=== PATIENT | female | born 1975 | race Caucasian/White ===

== ENCOUNTER 2021-06-26 18:08 | Emergency (ER) | payer OTHER, MEDICAID ==
[~2021-06-26] VITALS: Ht 165.1 cm; Wt 79.8 kg
[2021-06-26 18:15] VITALS: BP 125/74
--- NOTE | 2021-06-26 18:20 | NUR ---
PT W/C ASSISTED TO ER BED 6
--- NOTE | 2021-06-26 18:58 | NUR ---
DR HERNANDEZ AT BEDSIDE EVALUATING PATIENT.
[2021-06-26] MEDS ORDERED: KETOROLAC 60 MG/2 ML VIAL IM ONE (19:05)
--- NOTE | 2021-06-26 19:23 | NUR ---
Pt report given to RYAN CALLOWAY. Transfer of care at this time.
[2021-06-26] MEDS ORDERED: SULF-58 PO (19:31)
[2021-06-26] MEDS ORDERED: IBUP-2213 PO (19:31)
[2021-06-26] MEDS ORDERED: ACET-8386 PO (19:31)
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
--- NOTE | 2021-06-26 20:15 | NUR ---
PT AMBULATED TO BATHROOM
[2021-06-26 20:20] VITALS: BP 125/74
--- NOTE | 2021-06-26 20:20 | NUR ---
Patient discharged with v/s stable. Written and verbal after care instructions given and explained. Patient alert, oriented and verbalized understanding of instructions. Ambulatory with steady gait. All questions addressed prior to discharge. ID band removed. Patient advised to follow up with PMD. Rx of IBRUPROFEN, HYDROCODON, BACTRIM given. Opportunity to ask questions provided and answered.
--- NOTE | 2021-06-26 20:36 | NUR ---
The patient's care was reviewed and supervised by Fabiola Ruby RN.
== END 2021-06-26 20:20 | disposition home or self-care (01) ==
LOC: MED 18:08
DX: S70.12XA Contusion of left thigh, initial encounter (principal); H60.12 Cellulitis of left external ear; R55 Syncope and collapse; F12.90 Cannabis use, unspecified, uncomplicated; Z88.0 Allergy status to penicillin; Z98.890 Other specified postprocedural states; Z90.710 Acquired absence of both cervix and uterus; V89.2XXA Person injured in unspecified motor-vehicle accident, traffic, initial encounter; Y93.89 Activity, other specified; Y92.89 Other specified places as the place of occurrence of the external cause; Y99.8 Other external cause status
CPT/HCPCS: 93005; 96372; 99283; J1885

== ENCOUNTER 2021-07-30 12:39 | Emergency (ER) | payer MEDICAID, OTHER ==
[~2021-07-30] VITALS: Ht 165.1 cm; Wt 79.8 kg
[~2021-07-30 12:39] MED LIST: ACET-8386 PO; IBUP-2213 PO; SULF-58 PO
[2021-07-30 12:59] VITALS: BP 129/87
--- NOTE | 2021-07-30 13:04 | NUR ---
PT AMB TO BED 11.
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
[2021-07-30] MEDS ORDERED: KETOROLAC 30 MG/ML VIAL IM ONE (13:15)
--- NOTE | 2021-07-30 13:15 | NUR ---
DUSTIN PETIT AT BEDSIDE FOR FURTHER EVAL
--- NOTE | 2021-07-30 13:45 | NUR ---
PT TAKEN TO XRAY VIA WC
--- NOTE | 2021-07-30 14:41 | NUR ---
Patient discharged with v/s stable. Written and verbal after care instructions given and explained. Patient verbalized understanding. Ambulatory with steady gait. All questions addressed prior to discharge. Advised to follow up with PMD. with sling
== END 2021-07-30 14:41 | disposition home or self-care (01) ==
LOC: MED 12:39
DX: M25.512 Pain in left shoulder (principal); J45.909 Unspecified asthma, uncomplicated; Z88.0 Allergy status to penicillin; Z79.899 Other long term (current) drug therapy
CPT/HCPCS: 73030; 96372; 99283; J1885

== ENCOUNTER 2021-08-10 11:11 | Emergency (ER) | payer MEDICAID ==
[~2021-08-10] VITALS: Ht 162.6 cm; Wt 80.7 kg
[2021-08-10 11:24] VITALS: BP 145/73
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
[2021-08-10] MEDS ORDERED: NACL 0.9% 1,000 ML IV ONE (12:10)
[2021-08-10] MEDS ORDERED: ONDANSETRON 4 MG/2 ML VIAL IVP ONE (12:10)
[2021-08-10] MEDS ORDERED: MORPHINE SULFATE 4 MG/ML SYR IVP ONE (12:10)
[2021-08-10 13:01] LABS: ALBUMIN 3.2 g/dL (3.4-5.0); ANION GAP 11.5 (8-16); CARBON DIOXIDE 24.9 mmol/L (21-32); CREATININE 0.7 mg/dL (0.6-1.3); POTASSIUM 3.4 mmol/L (3.5-5.1); TOTAL BILIRUBIN 0.5 mg/dL (0.0-1.0)
[2021-08-10 13:03] LABS: BASOPHILS % (AUTO) 0.3 % (0.0-2.0); EOSINOPHILS # (AUTO) 0.1 K/uL (0-0.4); EOSINOPHILS % (AUTO) 2.2 % (0.0-4.0); HEMATOCRIT 37.7 % (36-48); HEMOGLOBIN 12.8 g/dL (12.0-16.0); LYMPHOCYTES # (AUTO) 1.2 K/uL (2.5-16.5); LYMPHOCYTES % (AUTO) 22.4 % (20.5-51.1); MEAN CORPUSCULAR HEMOGLOBIN 31 pg (27-31); MEAN CORPUSCULAR HGB CONC 34 g/dL (33-37); MEAN CORPUSCULAR VOLUME 90.1 fL (80-94); MONOCYTES # (AUTO) 0.3 K/uL (0.8-1.0); MONOCYTES % (AUTO) 5.3 % (1.7-9.3); NEUTROPHILS # (AUTO) 3.6 K/uL (1.8-7.7); NEUTROPHILS % (AUTO) 69.8 % (42.2-75.2); PLATELET COUNT (AUTO) 324 K/uL (140-450); RED BLOOD CELL COUNT(AUTO) 4.19 MIL/uL (4.20-5.40); RED CELL DISTRIBUTION WIDTH 13.2 % (11.6-13.7); WHITE BLOOD COUNT (AUTO) 5.2 K/uL (4.8-10.8)
--- NOTE | 2021-08-10 14:25 | NUR ---
PT AMBULATORY TO RESTROOM
--- NOTE | 2021-08-10 14:28 | NUR ---
PT AMBULATED BACK TO ROOM
[2021-08-10] MEDS ORDERED: KETOROLAC 15 MG/ML VIAL IVP ONE (15:10)
[2021-08-10] MEDS ORDERED: diphenhydrAMINE 50 MG/ML VIAL IVP ONE (15:10)
--- NOTE | 2021-08-10 15:42 | NUR ---
PT SWABBED FOR COVID(BLAKE) . HANDED TO LAB
[2021-08-10] MEDS ORDERED: ONDA-188 PO (15:55)
[2021-08-10] MEDS ORDERED: IBUP-2213 PO (15:55)
[2021-08-10 16:19] LABS: BARBITURATE, URINE NEGATIVE ng/ml (NEG <=200); BENZODIAZEPINE, URINE NEGATIVE ng/mL (NEG <=200); CANNABINOID, URINE POSITIVE ng/mL (NEG <=50); COCAINE, URINE NEGATIVE ng/mL (NEG <=300); OPIATE, URINE NEGATIVE ng/mL (NEG <=2000); PHENCYCLIDINE SCREEN,URINE NEGATIVE ng/mL (NEG <=25)
--- NOTE | 2021-08-10 18:05 | NUR ---
DR CUMMINGS AT BEDSIDE FOR PROCEDURE. CONSENT SIGNED AND PLACED IN CHART
--- NOTE | 2021-08-10 18:27 | NUR ---
PROCEDURE COMPLETE. PT IS TO LAY SUPINE AND MONITOR X1 HR. Addendum: 08/10/21 at [email or web address] CUMMINGS ANETHESIOLOGY IF QUESTIONS ARISE- [phone]
--- NOTE | 2021-08-10 19:29 | NUR ---
PT AMBULATORY W/ ASSIST. DENIES NUMBING OR LOSS OF SENSATION. DENIES PAIN AT THIS TIME
--- NOTE | 2021-08-10 19:30 | NUR ---
ANESTH AT BEDSIDE, STATED PATIENT WAS CLEARED TO BE D/C HOME AT THIS TIME.
--- NOTE | 2021-08-10 19:31 | NUR ---
REPORT GIVEN TO OGVIND DAVIS. ALL QUESTIONS ANSWERED. TRANSFER OF CARE AT THIS TIME
--- NOTE | 2021-08-10 19:40 | NUR ---
IV removed, catheter intact and site benign. Applied folded 4x4 gauze and tape to stop bleeding.
[2021-08-10 19:45] VITALS: BP 135/79
--- NOTE | 2021-08-10 19:45 | NUR ---
Patient discharged with v/s stable. Written and verbal after care instructions given on lumbar puncture and explained. Patient alert, oriented and verbalized understanding of instructions. Ambulatory with steady gait. All questions addressed prior to discharge. ID band removed. Patient advised to follow up with PMD. Rx of Ibuprofen and ondansetron given.
--- NOTE | 2021-08-10 19:48 | NUR ---
Chart checked and completed.
== END 2021-08-10 19:45 | disposition home or self-care (01) ==
LOC: MED 11:11
DX: R51.9 Headache, unspecified (principal); Z20.822 Contact with and (suspected) exposure to COVID-19; J45.909 Unspecified asthma, uncomplicated; Z79.2 Long term (current) use of antibiotics; Z79.891 Long term (current) use of opiate analgesic; Z79.1 Long term (current) use of non-steroidal anti-inflammatories (NSAID); Z88.0 Allergy status to penicillin
CPT/HCPCS: 36415; 80053; 80305; 84702; 85025; 87426; 96361; 96374; 96375; 99285; J1200; J1885; J2270; J2405; J7030

== ENCOUNTER 2022-01-09 15:48 | Emergency (ER) | payer MEDICAID, OTHER ==
[~2022-01-09] VITALS: Ht 165.1 cm; Wt 74.4 kg
[~2022-01-09 15:48] MED LIST changes: +ONDA-188 PO
[2022-01-09 15:57] VITALS: BP 156/94
[2022-01-09 18:31] LABS: BASOPHILS # (AUTO) 0.1 K/uL (0.00-0.22); BASOPHILS % (AUTO) 0.5 % (0.0-2.0); EOSINOPHILS % (AUTO) 0.3 % (0.0-4.0); HEMATOCRIT 40.1 % (36-48); HEMOGLOBIN 14.2 g/dL (12.0-16.0); LYMPHOCYTES # (AUTO) 2.3 K/uL (2.5-16.5); LYMPHOCYTES % (AUTO) 21.8 % (20.5-51.1); MEAN CORPUSCULAR HEMOGLOBIN 32 pg (27-31); MEAN CORPUSCULAR HGB CONC 35 g/dL (33-37); MONOCYTES # (AUTO) 0.9 K/uL (0.8-1.0); MONOCYTES % (AUTO) 8.3 % (1.7-9.3); NEUTROPHILS # (AUTO) 7.2 K/uL (1.8-7.7); NEUTROPHILS % (AUTO) 69.1 % (42.2-75.2); PLATELET COUNT (AUTO) 331 K/uL (140-450); RED BLOOD CELL COUNT(AUTO) 4.45 MIL/uL (4.20-5.40); RED CELL DISTRIBUTION WIDTH 13.1 % (11.6-13.7); WHITE BLOOD COUNT (AUTO) 10.4 K/uL (4.8-10.8)
[2022-01-09 18:48] LABS: ALBUMIN 3.8 g/dL (3.4-5.0); ANION GAP 14.7 (8-16); CARBON DIOXIDE 27.6 mmol/L (21-32); CREATININE 0.9 mg/dL (0.6-1.3); POTASSIUM 3.3 mmol/L (3.5-5.1); TOTAL BILIRUBIN 0.6 mg/dL (0.0-1.0)
[2022-01-09] MEDS ORDERED: DOXY-690 PO (19:15)
--- NOTE | 2022-01-09 21:51 | NUR ---
CALLED PT FOR DISCHARGE AND ACI. CALLED IN LOBBY AND PARKING LOT., NO ANSWER. PT LEFT WITHOUT RECEIVING ACI
== END 2022-01-09 21:50 | disposition home or self-care (01) ==
LOC: MED 15:48
DX: R53.1 Weakness (principal); R42 Dizziness and giddiness; J45.909 Unspecified asthma, uncomplicated
CPT/HCPCS: 36415; 80053; 85025; 93005; 99284

== ENCOUNTER 2022-05-13 15:16 | Emergency (ER) | payer OTHER ==
[~2022-05-13] VITALS: Ht 165.1 cm; Wt 68.0 kg
[~2022-05-13 15:16] MED LIST changes: -ACET-8386 PO; +ACET-8905 PO; +DOXY-690 PO
[2022-05-13 15:31] VITALS: BP 132/70
--- NOTE | 2022-05-13 15:45 | NUR ---
46/F WALKED IN REQUESTING MED REFILL D/T UNABLE TO GET PX UNTIL 2 WKS FROM TODAY. PT REQUESTING REFILL FOR THE FOLLOWING MEDS: SERTRALINE 100MG, HYDROXYZINE 25MG, MIRTAZAPINE 15MG, TRAZADONE 100MG, SEDRICK VENT HFA, ALBUTEROL INH. PT DENIES ANY COMPLAINTS AT THIS TIME. PMH: BIPOLAR, ANXIETY, DEPRESSION, PTSD, ASTHMA
--- NOTE | 2022-05-13 17:14 | NUR ---
PATIENT LEFT WITHOUT BEING SEEN BY DR. HERNANDEZ. NO FURTHER CARE PROVIDED FOR PATIENT. Addendum: 05/13/22 at 1717 by [email or web address] ERROR
[2022-05-13] MEDS ORDERED: ALBU0.0912 INH (18:09)
[2022-05-13] MEDS ORDERED: HYDR-637 PO (18:09)
--- NOTE | 2022-05-13 18:18 | NUR ---
Patient discharged with v/s stable. Written and verbal after care instructions given and explained. Patient alert, oriented and verbalized understanding of instructions. Ambulatory with steady gait. All questions addressed prior to discharge. ID band removed. Patient advised to follow up with PMD. Rx of ALBUTEROL, HYDROXYZINE given. Patient educated on indication of medication including possible reaction and side effects. Opportunity to ask questions provided and answered.
== END 2022-05-13 18:18 | disposition home or self-care (01) ==
LOC: MED 15:16
DX: J45.909 Unspecified asthma, uncomplicated (principal); F31.9 Bipolar disorder, unspecified; F43.10 Post-traumatic stress disorder, unspecified; Z76.0 Encounter for issue of repeat prescription; Z79.899 Other long term (current) drug therapy; Z79.2 Long term (current) use of antibiotics; Z79.1 Long term (current) use of non-steroidal anti-inflammatories (NSAID); Z88.0 Allergy status to penicillin
CPT/HCPCS: 99281

== ENCOUNTER 2022-08-21 20:47 | Emergency (ER) | payer OTHER ==
[~2022-08-21] VITALS: Ht 165.1 cm; Wt 59.0 kg
[~2022-08-21 20:47] MED LIST changes: +ALBU0.0912 INH; +HYDR-637 PO
[2022-08-21 20:50] VITALS: BP 108/70; PULSE 85; RESP 20; TEMP 97.4; O2SAT 98
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
[2022-08-21] MEDS ORDERED: LORazepam 2 MG/ML VIAL ONE (21:54)
[2022-08-21] MEDS ORDERED: LORazepam 2 MG/ML VIAL IM ONE (21:55)
--- NOTE | 2022-08-21 21:55 | NUR ---
ASSISTED UP TO BR, ACCOMPANIED BY DAUGHTER
[2022-08-21 22:00] VITALS: BP 108/70; PULSE 85; RESP 20; TEMP 97.4; O2SAT 98
--- NOTE | 2022-08-21 22:00 | NUR ---
Patient discharged with v/s stable. Written and verbal after care instructions given and explained. Patient verbalized understanding. Wheel Chair Assisted with to car. All questions addressed prior to discharge. Advised to follow up with PMD.
== END 2022-08-21 22:00 | disposition home or self-care (01) ==
LOC: MED 20:47
DX: F10.129 Alcohol abuse with intoxication, unspecified (principal); R06.02 Shortness of breath; J45.909 Unspecified asthma, uncomplicated; Z88.0 Allergy status to penicillin; Z79.899 Other long term (current) drug therapy
CPT/HCPCS: 96372; 99283; J2060

== ENCOUNTER 2022-09-01 18:07 | Emergency (ER) | payer OTHER ==
[~2022-09-01] VITALS: Ht 165.1 cm; Wt 72.6 kg
[2022-09-01 18:35] VITALS: BP 115/64; PULSE 68; RESP 18; TEMP 98; O2SAT 98
[2022-09-01 19:43] LABS: BASOPHILS # (AUTO) 0.1 K/uL (0.00-0.22); BASOPHILS % (AUTO) 0.7 % (0.0-2.0); EOSINOPHILS # (AUTO) 0.3 K/uL (0-0.4); EOSINOPHILS % (AUTO) 3.4 % (0.0-4.0); HEMATOCRIT 36.5 % (36-48); HEMOGLOBIN 12.5 g/dL (12.0-16.0); LYMPHOCYTES # (AUTO) 2.4 K/uL (2.5-16.5); LYMPHOCYTES % (AUTO) 32.6 % (20.5-51.1); MEAN CORPUSCULAR HEMOGLOBIN 32 pg (27-31); MEAN CORPUSCULAR HGB CONC 34 g/dL (33-37); MONOCYTES # (AUTO) 0.4 K/uL (0.8-1.0); MONOCYTES % (AUTO) 5.5 % (1.7-9.3); NEUTROPHILS # (AUTO) 4.3 K/uL (1.8-7.7); NEUTROPHILS % (AUTO) 57.8 % (42.2-75.2); PLATELET COUNT (AUTO) 240 K/uL (140-450); RED BLOOD CELL COUNT(AUTO) 3.93 MIL/uL (4.20-5.40); RED CELL DISTRIBUTION WIDTH 12.8 % (11.6-13.7); WHITE BLOOD COUNT (AUTO) 7.4 K/uL (4.8-10.8)
[2022-09-01 20:03] LABS: ALBUMIN 3.5 g/dL (3.4-5.0); ANION GAP 10.2 (8-16); ASPARTATE AMINOTRANSFERASE 40 U/L (15-37); CARBON DIOXIDE 27.4 mmol/L (21-32); CHLORIDE 107 mmol/L (98-107); CREATININE 0.9 mg/dL (0.6-1.3); GFR ARICAN-AMERICAN 86 mL/min (>90); GLUCOSE 100 mg/dL (74-106); POTASSIUM 3.6 mmol/L (3.5-5.1); SODIUM SERUM 141 mmol/L (136-145); TOTAL BILIRUBIN 0.4 mg/dL (0.0-1.0); UREA NITROGEN, BLOOD 14 mg/dL (7-18)
[2022-09-01] MEDS ORDERED: ACET-10509 PO (20:32)
[2022-09-01] MEDS ORDERED: ALBU0.0912 IH (20:32)
[2022-09-01 20:46] VITALS: BP 115/64; PULSE 68; RESP 18; TEMP 98; O2SAT 98
--- NOTE | 2022-09-01 20:46 | NUR ---
Patient discharged with v/s stable. Written and verbal after care instructions given and explained. Patient alert, oriented and verbalized understanding of instructions. Ambulatory with steady gait. All questions addressed prior to discharge. ID band removed. Patient advised to follow up with PMD. Rx of PROVENTIL HFA, TYLENOL given. Patient educated on indication of medication including possible reaction and side effects. Opportunity to ask questions provided and answered.
== END 2022-09-01 20:46 | disposition home or self-care (01) ==
LOC: MED 18:07
DX: R07.89 Other chest pain (principal); J45.909 Unspecified asthma, uncomplicated; Z79.899 Other long term (current) drug therapy; Z79.1 Long term (current) use of non-steroidal anti-inflammatories (NSAID); Z79.2 Long term (current) use of antibiotics; Z88.0 Allergy status to penicillin
CPT/HCPCS: 36415; 71045; 80053; 84484; 85025; 93005; 99285

== ENCOUNTER 2022-12-07 11:24 | Emergency (ER) | payer OTHER ==
[~2022-12-07] VITALS: Ht 165.1 cm; Wt 70.3 kg
[~2022-12-07 11:24] MED LIST changes: +ACET-10509 PO; +ALBU0.0912 IH
[2022-12-07 11:37] VITALS: BP 128/67; PULSE 74; RESP 18; TEMP 97.8; O2SAT 100
[2022-12-07] MEDS ORDERED: KETOROLAC 30 MG/ML VIAL IM ONE (12:25)
[2022-12-07] MEDS ORDERED: NAPR-1704 PO (14:09)
== END 2022-12-07 14:31 | disposition home or self-care (01) ==
LOC: MED 11:24
DX: M25.512 Pain in left shoulder (principal); M25.522 Pain in left elbow; M79.662 Pain in left lower leg; J45.909 Unspecified asthma, uncomplicated; Z79.899 Other long term (current) drug therapy; Z88.0 Allergy status to penicillin
CPT/HCPCS: 73030; 73080; 73650; 99284

== ENCOUNTER 2023-09-01 22:13 | Emergency (ER) | payer MEDICAID, OTHER ==
[~2023-09-01] VITALS: Ht 165.1 cm; Wt 70.8 kg
[~2023-09-01 22:13] MED LIST changes: +NAPR-1704 PO
[2023-09-01 22:18] VITALS: BP 109/59; PULSE 88; RESP 16; TEMP 97.3; O2SAT 98
[2023-09-01 23:03] LABS: FLU B ANTIGEN NEGATIVE (NEGATIVE)
[2023-09-01 23:04] LABS: FLU A ANTIGEN POSITIVE (NEGATIVE)
[2023-09-01 23:16] VITALS: BP 109/59; PULSE 88; RESP 16; TEMP 97.3; O2SAT 98
== END 2023-09-01 23:16 | disposition home or self-care (01) ==
LOC: MED 22:13
DX: J10.1 Influenza due to other identified influenza virus with other respiratory manifestations (principal); J45.909 Unspecified asthma, uncomplicated; F32.A Depression, unspecified; F41.9 Anxiety disorder, unspecified; Z20.822 Contact with and (suspected) exposure to COVID-19; Z79.1 Long term (current) use of non-steroidal anti-inflammatories (NSAID); Z79.899 Other long term (current) drug therapy; Z79.2 Long term (current) use of antibiotics; Z88.0 Allergy status to penicillin
CPT/HCPCS: 99283

== ENCOUNTER 2023-09-30 20:55 | Emergency (ER) | payer MEDICAID ==
[~2023-09-30] VITALS: Ht 165.1 cm; Wt 72.6 kg
[2023-09-30 21:14] VITALS: BP 150/81; PULSE 75; RESP 14; TEMP 98.1; O2SAT 99
[2023-09-30] MEDS ORDERED: CLIN150C1 PO (21:56)
[2023-09-30] MEDS ORDERED: ONDA-188 PO (21:57)
[2023-09-30] MEDS: CLINDAMYCIN 150 MG CAP PO ONE (22:03)
[2023-09-30] MEDS: KETOROLAC 30 MG/ML VIAL IM ONE (22:03)
[2023-09-30] MEDS: ACETAMINOPHEN EXTRA STRENGTH 500 MG TAB PO ONE (22:04)
== END 2023-09-30 22:30 | disposition home or self-care (01) ==
LOC: MED 20:55
DX: K04.7 Periapical abscess without sinus (principal); J45.909 Unspecified asthma, uncomplicated; Z79.1 Long term (current) use of non-steroidal anti-inflammatories (NSAID); Z79.2 Long term (current) use of antibiotics; Z79.899 Other long term (current) drug therapy; Z88.0 Allergy status to penicillin
CPT/HCPCS: 96372; 99283; J1885